=== PATIENT | female | born 1950 | race Caucasian/White ===

== ENCOUNTER 2023-03-28 23:44 | Emergency (ER) | payer OTHER ==
[2023-03-28 23:59] VITALS: BP 146/77; PULSE 84; RESP 20; TEMP 99; BMI 32.9
[2023-03-29] MEDS ORDERED: LACTATED RINGERS SOLUTION 1,000 ML/1,000 ML INFUS.BAG IV STA (01:28)
[2023-03-29 02:09] LABS: BASO % 0.5 % (0-2.0); EOS % 0.6 % (0-4.5); HEMATOCRIT 31.6 % (32.4-45.2); HEMOGLOBIN 10.9 GM/dL (10.7-15.3); LYMPH % 11.5 % (8-40); MCH 31.1 pg (25.7-33.7); MCHC 34.7 g/dl (32.0-36.0); MEAN CELL VOLUME 89.7 fl (80-96); MEAN PLT VOLUME 9.3 fl (7.5-11.1); MONO % 8.4 % (3.8-10.2); PLATELET COUNT 215 10^3/uL (134-434); RBC 3.52 M/mm3 (3.60-5.2); RDW 14.1 % (11.6-15.6); WHITE BLOOD COUNT 16.9 K/mm3 (4.0-10.0)
[2023-03-29 02:38] LABS: CALCIUM 8.5 mg/dL (8.5-10.1)
[2023-03-29 02:42] LABS: CREATININE 1.3 mg/dL (0.55-1.3)
[2023-03-29 02:43] LABS: BILIRUBIN,TOTAL 0.7 mg/dL (0.2-1); TOT PROT 6.5 g/dl (6.4-8.2)
== END 2023-03-29 05:13 | disposition home or self-care (01) ==
LOC: JER 23:44
PROC: 3E0337Z Introduction of Electrolytic and Water Balance Substance into Peripheral Vein, Percutaneous Approach (ICD-10-PCS; principal; 2023-03-29)
PROC: 3E0337Z Introduction of Electrolytic and Water Balance Substance into Peripheral Vein, Percutaneous Approach (ICD-10-PCS; 2023-03-29)
DX: E11.9 Type 2 diabetes mellitus without complications (principal); R05.9 Cough, unspecified; R50.9 Fever, unspecified; M79.10 Myalgia, unspecified site; J06.9 Acute upper respiratory infection, unspecified; Z20.822 Contact with and (suspected) exposure to COVID-19
CPT/HCPCS: 0241U-QW; 36415; 71045-TC-FY; 80053; 82962; 85025; 99284-25